=== PATIENT | male | born 1990 | race Caucasian/White ===

== ENCOUNTER 2016-06-13 15:02 | Emergency (ER) | payer BC ==
[2016-06-13 15:59] VITALS: BP 122/71
[2016-06-13] MEDS ORDERED: Tetan/Diph/Pertus SYR(Tdap)* 0.5 ML SYR(BOOSTRIX) use SYR IM ONE (15:59)
--- NOTE | 2016-06-13 16:07 | UC ---
Skin Complaint HPI - HPI Summary HPI Summary: with in the hour pt hit top of his head on a piece of from equipment---bleed a large amont, bleeding resolved after nursing irrigated the wound - History of Current Complaint Chief Complaint: UCLaceration Time Seen by Provider: 06/13/16 16:06 Stated Complaint: HEAD LACERATION Hx Obtained From: Patient Onset/Duration: Sudden Onset, Lasting Minutes, Still Present Skin Exposure Onset/Duration: Minutes Ago Timing: Constant Onset Severity: Mild Current Severity: Mild Pain Intensity: 2 Pain Scale Used: 0-10 Numeric Location: Discrete - scalp Aggravating: Nothing Alleviating: Nothing Associated Signs & Symptoms: Positive: Negative Related History: Trauma - Allergy/Home Medications Allergies/Adverse Reactions: Allergies Allergy/AdvReac Type Severity Reaction Status Date / Time No Known Allergies Allergy Verified 06/13/16 15:59 Home Medications: Home Medications NK [No Home Medications Reported] 06/13/16 [History Confirmed 06/13/16] Review of Systems Constitutional: Negative Skin: Other - lacteration to top right side of scalp Eyes: Negative ENT: Negative Respiratory: Negative Cardiovascular: Negative Gastrointestinal: Negative Genitourinary: Negative Motor: Negative Neurovascular: Negative Musculoskeletal: Negative Neurological: Negative Psychological: Negative All Other Systems Reviewed And Are Negative: Yes PMH/Surg Hx/FS Hx/Imm Hx Previously Healthy: Yes Endocrine History Of: Denies: Diabetes, Thyroid Disease Cardiovascular History Of: Denies: Cardiac Disorders, Hypertension Respiratory History Of: Denies: COPD, Asthma GI/ History Of: Denies: Ulcer - Surgical History Surgical History: None - Family History Known Family History: Positive: Hypertension - Social History Occupation: Employed Full-time Lives: With Family Alcohol Use: Rare Substance Use Type: None Smoking Status (MU): Never Smoked Tobacco Physical Exam Triage Information Reviewed: Yes Appearance: Well-Appearing, No Pain Distress, Well-Nourished Vital Signs: Initial Vital Signs Temp 97.2 F 06/13/16 15:57 Pulse 65 06/13/16 15:57 Resp 18 06/13/16 15:57 BP 122/71 06/13/16 15:57 Pulse Ox 97 06/13/16 15:57 Vital Signs Reviewed: Yes Eye Exam: Normal Eyes: Positive: Conjunctiva Clear ENT Exam: Normal ENT: Positive: Normal ENT inspection, Hearing grossly normal. Negative: Nasal congestion, Nasal drainage, Trismus, Muffled/hoarse voice Dental Exam: Normal Neck exam: Normal Neck: Positive: Supple, Nontender, No Lymphadenopathy Respiratory Exam: Normal Respiratory: Positive: Chest non-tender, No respiratory distress, No accessory muscle use Cardiovascular Exam: Normal Cardiovascular: Positive: RRR, Pulses Normal, Brisk Capillary Refill Musculoskeletal Exam: Normal Musculoskeletal: Positive: Strength Intact, ROM Intact, No Edema Neurological Exam: Normal Neurological: Positive: Alert, Muscle Tone Normal Psychological Exam: Normal Skin Exam: Normal Skin: Positive: Other - 1 cm laceration to top right side of scalp Laceration Repair - Laceration Repair 1 Description: Linear Laceration Size After Repair: Depth (mm) - 2 Modified For Repair: No Cleansing Completed Via Routine Prep: Yes Irrigation With Pressure Irrigation Device: Yes Closure Material: Jesús - x2 Course/Dx - Course Course Of Treatment: up date tetnus, routine staple care return in 10 days for removal - Differential Diagnoses - Skin Complaint Differential Diagnoses: Other - scalp laceration with staple rpair - Diagnoses Provider Diagnoses: 1 cm scalp lac. with staple repair, update tetnus Discharge - Discharge Plan Condition: Stable Disposition: HOME Patient Education Materials: Acetaminophen (By mouth), Head Injury (ED), Staple Care (ED) Referrals: [facility] [place] [facility] [place]] - If Needed No Primary Care Phys,NOPCP [Primary Care Provider] - Additional Instructions: Return in 10 days to have jesús removed
== END 2016-06-13 16:33 | disposition home or self-care (01) ==
LOC: UCEAST 15:02
DX: S01.01XA Laceration without foreign body of scalp, initial encounter (principal); W22.8XXA Striking against or struck by other objects, initial encounter
CPT/HCPCS: 12001; 90715; 99201; G0463

== ENCOUNTER 2016-06-23 16:40 | Emergency (ER) | payer BC | END 2016-06-23 18:05 | disposition left against medical advice (07) | LOC: UCEAST 16:40 | DX: Z48.02 Encounter for removal of sutures (principal); Z53.21 Procedure and treatment not carried out due to patient leaving prior to being seen by health care provider ==

== ENCOUNTER 2016-06-26 12:39 | Emergency (ER) | payer BC ==
[2016-06-26 13:44] VITALS: BP 119/86
--- NOTE | 2016-07-19 14:28 | UC ---
HPI Wound/Suture Re-check - HPI Summary HPI Summary: here to have 2 jesús removed from head - History Of Current Complaint Chief Complaint: UCLaceration Stated Complaint: STAPLE REMOVAL -HEAD Time Seen by Provider: 06/26/16 13:31 Hx Obtained From: Patient Onset/Duration: Sudden Onset, Lasting Days - 10, Still Present Severity: Mild Pain Intensity: 0 Pain Scale Used: 0-10 Numeric - Allergies/Home Medications Allergies/Adverse Reactions: Allergies Allergy/AdvReac Type Severity Reaction Status Date / Time No Known Allergies Allergy Verified 06/13/16 15:59 PMH/Surg Hx/FS Hx/Imm Hx Previously Healthy: Yes Endocrine History Of: Denies: Diabetes, Thyroid Disease Cardiovascular History Of: Denies: Cardiac Disorders, Hypertension Respiratory History Of: Denies: COPD, Asthma GI/ History Of: Denies: Ulcer - Surgical History Surgical History: None - Family History Known Family History: Positive: Hypertension - Social History Occupation: Student Lives: With Family Alcohol Use: Rare Substance Use Type: None Smoking Status (MU): Never Smoked Tobacco Review of Systems Constitutional: Negative Skin: Negative, Other - healing wound on top of head Eyes: Negative ENT: Negative Respiratory: Negative Cardiovascular: Negative Gastrointestinal: Negative Genitourinary: Negative Motor: Negative Neurovascular: Negative Musculoskeletal: Negative Neurological: Negative Psychological: Negative All Other Systems Reviewed And Are Negative: Yes Physical Exam Triage Information Reviewed: Yes Appearance: Well-Appearing, No Pain Distress, Well-Nourished Vital Signs: Initial Vital Signs Temp 98.2 F 06/26/16 13:42 Pulse 67 06/26/16 13:42 Resp 16 06/26/16 13:42 BP 119/86 06/26/16 13:42 Pulse Ox 98 06/26/16 13:42 Vital Signs Reviewed: Yes Eye Exam: Normal Eyes: Positive: Conjunctiva Clear ENT Exam: Normal ENT: Positive: Normal ENT inspection, Hearing grossly normal, TMs normal. Negative: Nasal congestion, Nasal drainage, Tonsillar swelling, Tonsillar exudate, Trismus, Muffled/hoarse voice Dental Exam: Normal Neck exam: Normal Neck: Positive: Supple, Nontender, No Lymphadenopathy Respiratory Exam: Normal Respiratory: Positive: Chest non-tender, Lungs clear, Normal breath sounds, No respiratory distress, No accessory muscle use Cardiovascular Exam: Normal Cardiovascular: Positive: RRR, No Murmur, Pulses Normal, Brisk Capillary Refill Abdominal Exam: Normal Musculoskeletal Exam: Normal Musculoskeletal: Positive: Strength Intact, ROM Intact, No Edema Neurological Exam: Normal Neurological: Positive: Alert, Muscle Tone Normal Psychological Exam: Normal Skin Exam: Normal Skin: Positive: Other - well healed laceration Course/Dx - Course Course Of Treatment: jesús removed tolerated well, follow up prn - Differential Dx - Laceration/Wound Differential Diagnoses: Cellulitis, Healing Wound, Suture Removal Provider Diagnoses: Healing wound, staple removal Discharge - Discharge Plan Condition: Stable Disposition: HOME Referrals: [facility] [place] [facility] [Outside] - If Needed No Primary Care Phys,NOPCP [Primary Care Provider] - Additional Instructions: Your wound as healed nicely return for any problems---Nery
== END 2016-06-26 13:45 | disposition home or self-care (01) ==
LOC: UCEAST 12:39
DX: Z48.02 Encounter for removal of sutures (principal)
CPT/HCPCS: 99211; G0463